=== PATIENT | female | born 1960 | race Asian ===

== ENCOUNTER 2018-02-02 08:52 | Emergency (ER) | payer SELFPAY ==
[2018-02-02] MEDS ORDERED: TRIA15CR50 TP (09:17)
[2018-02-02] MEDS ORDERED: PRED-220 PO (09:18)
[2018-02-02 09:34] VITALS: BP 122/63
--- NOTE | 2018-02-02 09:39 | PHYS DOC ---
Past History Past Medical History: No Pertinent History Past Surgical History: No Surgical History Alcohol Use: None Drug Use: None Adult General Chief Complaint Chief Complaint: SKIN PROBLEM HPI HPI Throat female presents with rash. The patient does not speak any [place]ian and a family member is providing translation. 3 days ago, the patient started to have a raised, erythematous, pruritic rash on her bilateral lower arms. Over the last 3 days additional lesions have appeared further up on her arms, on her legs , and now on her face and ear. She has been doing yardwork outside the last few days. She is unsure what kinds of plants she's been around. She has not tried any medication for the rash. She has no other complaints. Review of Systems Review of Systems Constitutional: Denies fever or chills [] Eyes: Denies change in visual acuity, redness, or eye pain [] HENT: Denies nasal congestion or sore throat [] Respiratory: Denies cough or shortness of breath [] Cardiovascular: No additional information not addressed in HPI [] GI: Denies abdominal pain, nausea, vomiting, bloody stools or diarrhea [] : Denies dysuria or hematuria [] Musculoskeletal: Denies back pain or joint pain [] Integument: Rash [] Neurologic: Denies headache, focal weakness or sensory changes [] Endocrine: Denies polyuria or polydipsia [] All other systems were reviewed and found to be within normal limits, except as documented in this note. Allergies Allergies Allergies Coded Allergies Type Severity Reaction Last Updated Verified No Known Drug Allergies 02/02/18 No Physical Exam Physical Exam Constitutional: Well developed, well nourished, no acute distress, non-toxic appearance. [] HENT: Normocephalic, atraumatic, bilateral external ears normal, oropharynx moist, no oral exudates, nose normal. [] Eyes: PERRLA, EOMI, conjunctiva normal, no discharge. [] Neck: Normal range of motion, no tenderness, supple, no stridor. [] Cardiovascular:Heart rate regular rhythm, no murmur [] Lungs & Thorax: Bilateral breath sounds clear to auscultation [] Abdomen: Bowel sounds normal, soft, no tenderness, no masses, no pulsatile masses. [] Skin: Erythemaous rash with patches and some vesicles on bilateral arms and legs with a few small areas on her face and ears. No eye or mouth involvement. [] Back: No tenderness, no CVA tenderness. [] Extremities: No tenderness, no cyanosis, no clubbing, ROM intact, no edema. [] Neurologic: Alert and oriented X 3, normal motor function, normal sensory function, no focal deficits noted. [] Psychologic: Affect normal, judgement normal, mood normal. [] Current Patient Data Vital Signs Vital Signs Date Time Temp Pulse Resp B/P (MAP) Pulse Ox O2 Delivery O2 Flow Rate FiO2 02/02/18 09:00 98.1 63 22 96 Room Air EKG EKG [] Radiology/Procedures Radiology/Procedures [] Course & Med Decision Making Course & Med Decision Making Pertinent Labs and Imaging studies reviewed. (See chart for details) The patient appears to be suffering from poison deisy dermatitis. I have reviewed with the patient how she might be getting exposed. I have explained how to avoid contact with the plant oils. I've also advised that she wash all wounds and clothing associated with the last 3 days. 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 I will discharge her with prednisone for 14 days and triamcinolone cream. [] Dragon Disclaimer Dragon Disclaimer This electronic medical record was generated, in whole or in part, using a voice recognition dictation system. Departure Departure: Impression: Primary Impression: Poison deisy dermatitis Disposition: 01 HOME, SELF-CARE Condition: STABLE Patient Instructions: Poison Deisy, [id number] Scripts Prednisone (PREDNISONE) 10 Mg Tablet 10 MG PO UD for PREDNISONE TAPER, #37 TAB 0 Refills Take 4 tablets by mouth once a day for 3 days, then take 3 tablets by mouth once a day for 3 days, then take 2 tablet by mouth once a day for 3 days, then take 1 tablet by mouth daily x 3 days, then stop. Prov: LINDA NORMAN DO 02/02/18 Triamcinolone Acetonide (TRIAMCINOLONE ACETONIDE) 15 Gm Cream..g. 1 JOSE MIGUEL TP BID PRN for RASH, #30 GM Prov: LINDA NORMAN DO 02/02/18 LINDA NORMAN DO Feb 02, 2018 09:39
== END 2018-02-02 09:36 | disposition home or self-care (01) ==
LOC: ER 08:52
DX: L23.7 Allergic contact dermatitis due to plants, except food (principal)
CPT/HCPCS: 99283